=== PATIENT | female | born 1995 | race Native Hawaiian/Other Pacific Islander ===

== ENCOUNTER 2017-03-11 01:06 | Emergency (ER) | payer MEDICAID ==
[~2017-03-11 01:06] MED LIST: IBUP600 PO; MACR100C PO; ZOFR4TAB3 SL
--- NOTE | 2017-03-11 02:19 | PD ---
HPI Travel History International Travel<30 Days: No Contact w/Intl Traveler<30Days: No Known Affected Area: No History of Present Illness HPI This patient is a 22-year-old 4 para 3003 EDC is 04/01/2017 presently at 37 weeks gestation she presents with the onset of contractions at about 6:30 PM questionable leaking of fluid no vaginal bleeding. amnisure is negative care with [facility] and Dr. Colvin Denies any complications Unsure of her group B strep status History Past Medical History Narrative Medical No known drug allergies no major medical problems Obstetric History Obstetric History Normal spontaneous vaginal delivery 3 at term Past Surgical History Narrative Surgical Tonsils and adenoids as a child Family History Family History: Negative Social History Alcohol Use: No Tobacco Use: No Substance Abuse: No Allergies-Medications (Allergen,Severity, Reaction): Coded Allergies: No Known Allergies (Unverified , 05/04/15) Home Meds Active Scripts Ibuprofen (Motrin 600 Mg Tab) 600 Mg Tab, 600 MG PO Q6H Y for CRAMPING, #30 TAB 0 Refills Prov:Catalina Parra MD 01/08/16 Nitrofurantoin Monohyd Macro (Macrobid) 100 Mg Cap, 100 MG PO BID, #10 CAP Prov:Marcos Tejada MD 05/04/15 Ondansetron (Zofran ODT) 4 Mg Tab, 4 MG SL Q6H Y for NAUSEA, #6 TAB FOR NAUSEA/VOMITING Prov:Marcos Tejada MD 05/04/15 Review of Systems Gastrointestinal: Abdominal Pain (as per history of present illness) Physical Exam Narrative GENERAL: Well-nourished, well-developed patient. Alert oriented 3 and cooperative in no acute distress SKIN: Warm and dry. CARDIOVASCULAR: Regular rate and rhythm without murmurs, gallops, or rubs. RESPIRATORY: Breath sounds equal bilaterally. No accessory muscle use. ABDOMEN/GI: Gravid term estimated weight 7 pounds Gravid to [-] weeks size consistent with gestational age Fundal Height: [-] GENITOURINARY: External Genitalia: intact and normal in appearance BUS glands: [-] Cervix: [-] Slightly posterior soft Dilatation: [-] 1-2 cm Effacement: [-] 50% effaced Station: [-] -2 station Presentation: [-] Vertex Membranes: [intact Uterine Contractions: [-] Irregular contractions every 2-4 minutes FHT's: Category: [-] 1 Baseline: [-] 130 Reactive: [-] + Variability: [-] Moderate variability Decels: [-] 0 EXTREMITIES: No cyanosis or edema. 2+ NEUROLOGICAL: Awake and alert. Motor and sensory grossly within normal limits. Five out of 5 muscle strength in all muscle groups. Normal speech. Data Data Vital Signs Reviewed: Yes (blood pressure 123/77 pulse is 97 she is afebrile) [facility] Medical Record Reviewed: Yes Interpretation(s) 22-year-old at 37 weeks Harmon Gutierrez versus early latent phase GBS unknown Reactive category 1 tracing No clinical evidence of ruptured membranes as the amnisure is negative Plan Patient has been monitored over the past hour GBS culture Will discharge the patient home kick counts Structures on when to return Plan Discharge home kick counts Keep her next clinic appointment Instructions on when to return Diagnosis Diagnosis: Primary Impression: 37 weeks gestation of Additional Impression: Malick Gutierrez' contraction Disposition: 01 DISCHARGE HOME Condition: Stable Patient Instructions: General Instructions, Having Your Baby: The Labor Process (GEN), Movement (ED) Departure Forms: Tests/Procedures Eloina Anderson MD Mar 11, 2017 02:19
== END 2017-03-11 02:30 | disposition home or self-care (01) ==
LOC: HOBED 01:06
DX: O47.1 False labor at or after 37 completed weeks of gestation (principal); Z3A.37 37 weeks gestation of pregnancy
CPT/HCPCS: 59025; 84112; 87081; 87150; 99284

== ENCOUNTER 2017-03-18 22:58 | Inpatient (IN) | payer MEDICAID ==
[2017-03-18] MEDS ORDERED: LACTATED RINGER'S 1000 ML INJ 1,000 ML IV SCH (23:40)
[2017-03-18] MEDS ORDERED: LACTATED RINGER'S 1000 ML INJ 1,000 ML IV PRN (23:40)
--- NOTE | 2017-03-18 23:40 | HHI.HP ---
HPI Chief Complaint Contractions Date Seen: Mar 18, 2017 Travel History International Travel<30 Days: No Contact w/Intl Traveler<30Days: No Known Affected Area: No History of Present Illness HPI This 22-year-old white female at [address] Colvin for care but is presented here in active labor. heart tones are reactive she is brenda every 3 minutes Weeks Gestation: 38 Para: 3 : 5 History Obstetric History Obstetric History 3 vaginal deliveries Social History Alcohol Use: No Tobacco Use: No Substance Abuse: No Allergies-Medications (Allergen,Severity, Reaction): Coded Allergies: No Known Allergies (Unverified , 05/04/15) Home Meds Active Scripts Ibuprofen (Motrin 600 Mg Tab) 600 Mg Tab, 600 MG PO Q6H Y for CRAMPING, #30 TAB 0 Refills Prov:Catalina Parra MD 01/08/16 Nitrofurantoin Monohyd Macro (Macrobid) 100 Mg Cap, 100 MG PO BID, #10 CAP Prov:Marcos Tejada MD 05/04/15 Ondansetron (Zofran ODT) 4 Mg Tab, 4 MG SL Q6H Y for NAUSEA, #6 TAB FOR NAUSEA/VOMITING Prov:Marcos Tejada MD 05/04/15 Review of Systems General / Constitutional: No: Fever, Weight Gain, Chills, Other Eyes: No: Diploplia, Blurred Vision, Visual changes, Pain, Photophobia HENT: No: Headaches, Vertigo, Lightheadedness Cardiovascular: No: Irregular Rhythm, Chest Pain or Discomfort, Palpitations, Tachycardia, Syncope, Varicosities, Edema, Cyanosis Respiratory: No: Cough, Short of Breath, Other Gastrointestinal: Abdominal Pain, No: Nausea, Vomiting, Diarrhea Genitourinary: No: Decreased Urinary Output, Oliguria Musculoskeletal: No: Limited ROM, Weakness, Cramping, Edema, Pain Skin: No Rash, No Itching, No Dryness, No Lumps, No Change in Pigmentation, No Change in Nails, No Alopecia, No Lesions Neurologic: No: Weakness, Dizziness, Syncope, Focal Abnormalities, Coordination Problem, Headache, Slurred Speech, Seizures Psychiatric: No: Depression, Suicidal Ideations, Homicidal Ideation Endocrine: No: Heat Intolerance, Cold Intolerance, Polydipsia, Polyuria, Other Physical Exam Narrative GENERAL: Well-nourished, well-developed patient. SKIN: Warm and dry. HEAD: Normocephalic and atraumatic. EYES: No scleral icterus. No injection or drainage. ENT: No nasal drainage noted. Mucous membranes pink. Airway patent. NECK: Supple, trachea midline. No JVD. CARDIOVASCULAR: Regular rate and rhythm without murmurs, gallops, or rubs. RESPIRATORY: Breath sounds equal bilaterally. No accessory muscle use. BREASTS: Bilateral exam showed no masses , no retractions, no nipple discharge. ABDOMEN/GI: Abdomen soft, non-tender, bowel sounds present, no rebound, no guarding Gravid to [38-] weeks size Fundal Height: [38-] GENITOURINARY: External Genitalia: intact and normal in appearance BUS glands: [-] Cervix: [-] Dilatation: [5-] Effacement: [-90] Station: [-2] Presentation: [-vtx] Membranes: [intact bulging] Uterine Contractions: [reg-] FHT's: Category: [1-] Baseline: 133[-] Reactive: [yes-] Variability: [-mod] Decels: [none-] EXTREMITIES: No cyanosis or edema. BACK: Nontender without obvious deformity. No CVA tenderness. NEUROLOGICAL: Awake and alert. Motor and sensory grossly within normal limits. Five out of 5 muscle strength in all muscle groups. Normal speech. Caprini VTE Risk Assessment Caprini VTE Risk Assessment: No/Low Risk (score <= 1) Caprini Risk Assessment Model Point Value = 1 Point Value = 2 Point Value = 3 Point Value = 5 Age 41-60 Minor surgery BMI > 25 kg/m2 Swollen legs Varicose veins or History of unexplained or recurrent spontaneous Oral contraceptives or hormone replacement Sepsis (< 1 month) Serious lung disease, including pneumonia (< 1 month) Abnormal pulmonary function Acute myocardial infarction Congestive heart failure (< 1 month) History of inflammatory bowel disease Medical patient at bed rest Age 61-74 Arthroscopic surgery Major open surgery (> 45 min) Laparoscopic surgery (> 45 min) Malignancy Confined to bed (> 72 hours) Immobilizing plaster cast Central venous access Age >= 75 History of VTE Family history of VTE Factor V Leiden Prothrombin 42824C Lupus anticoagulant Anticardiolipin antibodies Elevated serum homocysteine Heparin-induced thrombocytopenia Other congenital or acquired thrombophilia Stroke (< 1 month) Elective arthroplasty Hip, pelvis, or leg fracture Acute spinal cord injury (< 1 month) Prophylaxis Regimen Total Risk Factor Score Risk Level Prophylaxis Regimen 0-1 Low Early ambulation 2 Moderate Order ONE of the following: *Sequential Compression Device (SCD) *Heparin 5000 units SQ BID 3-4 Higher Order ONE of the following medications: *Heparin 5000 units SQ TID *Enoxaparin/Lovenox 40 mg SQ daily (WT < 150 kg, CrCl > 30 mL/min) *Enoxaparin/Lovenox 30 mg SQ daily (WT < 150 kg, CrCl > 10-29 mL/min) *Enoxaparin/Lovenox 30 mg SQ BID (WT < 150 kg, CrCl > 30 mL/min) AND/OR *Sequential Compression Device (SCD) 5 or more Highest Order ONE of the following medications: *Heparin 5000 units SQ TID (Preferred with Epidurals) *Enoxaparin/Lovenox 40 mg SQ daily (WT < 150 kg, CrCl > 30 mL/min) *Enoxaparin/Lovenox 30 mg SQ daily (WT < 150 kg, CrCl > 10-29 mL/min) *Enoxaparin/Lovenox 30 mg SQ BID (WT < 150 kg, CrCl > 30 mL/min) AND *Sequential Compression Device (SCD) Assessment/Plan Assessment and Plan 22-year-old white female at 38 weeks presents in active labor cervix 5 cm 90% -2 vertex. Contractions are regular heart tones are reactive Impressions active labor 38 weeks Plan is admission for labor management anticipate vaginal delivery Miguel Pradhan II, MD Mar 18, 2017 23:40
[2017-03-18] MEDS ORDERED: CITRIC ACID-SODIUM CITRATE LIQ 30 ML UDC PO SCH (23:45)
[2017-03-18] MEDS ORDERED: OXYTOCIN 30 UNITS-500ML PREMIX 500 ML IV ONE (23:45)
[2017-03-18] MEDS ORDERED: MINERAL OIL 10 ML VIAL TOPICAL PRN (23:45)
[2017-03-18] MEDS ORDERED: LIDOCAINE HCL 1% 50 ML VIAL I-DERMAL PRN (23:45)
[2017-03-18] MEDS ORDERED: PENICILLIN G POTASSIUM INJ 5,000,000 UNITS in SODIUM CHLORIDE 0.9% INJ 100 ML IV ONE (23:45)
[2017-03-18] MEDS ORDERED: SODIUM CHLORID 0.9% 500 ML INJ 500 ML IV PRN (23:45)
[2017-03-18] MEDS ORDERED: LIDOCAINE HCL 1% 50 ML VIAL INFIL PRN (23:45)
[2017-03-18] MEDS ORDERED: fentaNYL 2MCG-BUPIV 0.125% INJ 100 ML ONE (23:53)
[2017-03-18] MEDS ORDERED: ePHEDrine/NS 25 MG/5 ML SYR ONE (23:53)
[2017-03-19] VITALS (25 sets, daily range): BP systolic 97–137; BP diastolic 55–105; PULSE 72–134; RESP 14–18; TEMP 97.4–98.2; O2SAT 91–100
[2017-03-19] MEDS ORDERED: SODIUM CHLOR 0.9% 1000 ML INJ 1,000 ML IV PRN
[2017-03-19 00:34] LABS: AUTOMATED NEUTROPHIL # 6.2 TH/MM3 (1.8-7.7); BASOPHIL # 0.1 TH/MM3 (0-0.2); BASOPHIL % 0.9 % (0.0-2.0); EOSINOPHIL # 0.1 TH/MM3 (0-0.4); EOSINOPHIL % 0.7 % (0.0-4.0); HEMO FLAGS DIFF FINAL; LYMPH % 19.2 % (9.0-44.0); LYMPHOCYTE # 1.7 TH/MM3 (1.0-4.8); MEAN CELL VOLUME 81.3 FL (80.0-100.0); MEAN CORPUSCULAR HEMOGLOBIN 26.5 PG (27.0-34.0); MEAN CORPUSCULAR HGB CONC 32.6 % (32.0-36.0); MONO % 9.8 % (0.0-8.0); NEUT % 69.4 % (16.0-70.0); PLATELET COUNT 384 TH/MM3 (150-450); RED BLOOD COUNT 4.06 MIL/MM3 (4.00-5.30); RED CELL DISTRIBUTION WIDTH 15.5 % (11.6-17.2); WHITE BLOOD COUNT 8.9 TH/MM3 (4.0-11.0)
[2017-03-19 00:44] LABS: BACTERIA, URINE RARE /hpf; BLOOD, URINE NEG (NEG); COMMENT (UR) CULT NOT INDICATED; CULTURE IF INDICATED CULT NOT INDICATED; GLUCOSE,URINE NEG (NEG); KETONE, URINE NEG (NEG); MUCUS URINE FEW /lpf (OCC); NITRITE,URINE NEG (NEG); PH, URINE 6.5 (5.0-8.5); SQUAMOUS EPITHELIAL CELL URINE 4 /hpf (0-5); URINE COLOR YELLOW (YELLW/STRAW)
--- NOTE | 2017-03-19 00:49 | PD.OB.DELI ---
Weeks gestation: 38 Gest age assessed date: Mar 19, 2017 Gest age assessed time: 00:38 Pt started active labor?: Yes Medical induction of labor?: No Artificial rupture of membrane: No Anesthesia: None Episiotomy: None Vaginal Delivery: Normal Presentation: Occiput anterior Nuchal Cord: None Delayed cord clamping (45 sec): No Infant: Male Delivery date: Mar 19, 2017 Delivery time: 00:38 One Minute : 8 Five Minute : 9 Weight: 3410 gm Placenta: Spontaneous delivery Laceration: No lacerations Estimated blood loss: 100 Additional Information precipitous labor & delivery Miguel Pradhan II, MD Mar 19, 2017 00:49
[2017-03-19] MEDS ORDERED: OXYTOCIN 30 UNITS-500ML PREMIX 500 ML IV SCH (01:00)
[2017-03-19] MEDS ORDERED: WITCH HAZEL 50%/GLYCERIN 12.5% 40 PAD JAR TOPICAL PRN (01:00)
[2017-03-19] MEDS ORDERED: DOCUSATE SODIUM 50 MG/SENNA 8.6 MG TAB PO PRN (01:00)
[2017-03-19] MEDS ORDERED: ACETAMINOPHEN 325 MG TAB PO PRN (01:00)
[2017-03-19] MEDS ORDERED: ONDANSETRON ODT 4 MG TAB PO PRN (01:00)
[2017-03-19] MEDS ORDERED: SODIUM CHLORIDE 0.9% FLUSH 10 ML FLUSH IV FLUSH PRN (01:00)
[2017-03-19] MEDS ORDERED: ALUMINUM/MAGNESIUM/SIMETH 30 ML CUP PO PRN (01:00)
[2017-03-19] MEDS ORDERED: ZOLPIDEM TARTRATE 5 MG TAB PO PRN (01:00)
[2017-03-19] MEDS ORDERED: BENZOCAINE 20% TOPICAL SPRAY 60 ML CAN TOPICAL PRN (01:00)
[2017-03-19] MEDS ORDERED: PENICILLIN G POTASSIUM INJ 2,500,000 UNITS in SODIUM CHLORIDE 0.9% INJ 100 ML IV SCH (03:45)
[2017-03-19] MEDS: IBUPROFEN 600 MG TAB PO PRN ×2 (07:27→13:28)
--- NOTE | 2017-03-19 08:20 | HHI.OB ---
Subjective Post Day: 0 Remarks day # 0 AFVSS overnight. Decreased lochia. Denies dysuria. No breast tenderness. She is feeding the baby via bottle. Appetite good. No nausea or vomiting. Ambulating well. Denies calf pain or shortness of breath. Otherwise, she is doing well this morning and has no other complaints. Objective Vitals/I&O Vital Signs Date Time Temp Pulse Resp B/P (MAP) Pulse Ox O2 Delivery O2 Flow Rate FiO2 03/19/17 07:30 72 118/68 (85) 03/19/17 07:30 97.4 14 03/19/17 04:23 98.2 85 16 103/55 (71) 03/19/17 02:27 18 03/19/17 02:15 82 122/62 (82) 03/19/17 02:00 76 123/89 (100) 03/19/17 01:51 18 03/19/17 01:45 82 116/72 (87) 03/19/17 01:31 82 114/57 (76) 03/19/17 01:25 18 03/19/17 01:15 98 137/84 (101) 03/19/17 01:13 18 03/19/17 01:00 90 125/76 (92) 03/19/17 00:52 101 127/67 (87) 03/19/17 00:45 18 03/19/17 00:40 94 03/19/17 00:40 99 03/19/17 00:38 129 132/105 (114) 03/19/17 00:35 102 03/19/17 00:35 102 03/19/17 00:35 100 03/19/17 00:30 93 03/19/17 00:30 100 03/19/17 00:30 105 03/19/17 00:25 91 03/19/17 00:25 94 03/19/17 00:25 97 03/19/17 00:20 118 03/19/17 00:20 118 03/19/17 00:15 75 03/19/17 00:10 134 03/19/17 00:08 96 127/61 (83) Objective Remarks GENERAL: Well-nourished, well-developed patient. CARDIOVASCULAR: Regular rate and rhythm without murmurs, gallops, or rubs. RESPIRATORY: Breath sounds equal bilaterally. No accessory muscle use. ABDOMEN/GI: Abdomen soft, non-tender. Fundus: Firm, non-tender at umbilicus. GENITOURINARY: Light to moderate bleeding. EXTREMITIES: No cyanosis or edema, non-tender, without signs of DVT. Medications and IVs Current Medications Medications (Trade) Dose Ordered Sig/Sandeep Route Start Time Stop Time Status Last Admin (NS Flush) 2 ml BID IV FLUSH 03/19/17 09:00 (NS Flush) 2 ml UNSCH PRN IV FLUSH 03/19/17 01:00 (Tylenol) 650 mg Q4H PRN PO 03/19/17 01:00 (Motrin) 600 mg Q6H PRN PO 03/19/17 01:00 03/19/17 07:27 (Percocet 5-325 Mg) 1 tab Q4H PRN PO 03/19/17 01:00 (Americaine 20% Top Spr) 1 spray Q4H PRN TOPICAL 03/19/17 01:00 03/19/17 07:27 (Tucks Pads) 1 applic QID PRN TOPICAL 03/19/17 01:00 03/19/17 07:27 (Vanessa-Colace) 2 tab Q12H PRN PO 03/19/17 01:00 (Ambien) 5 mg HS PRN PO 03/19/17 01:00 (M-M-R Ii Inj) 0.5 ml ONCE ONCE SQ 03/19/17 16:00 03/19/17 16:01 (Boostrix Inj) 0.5 ml ONCE ONCE IM 03/19/17 16:00 03/19/17 16:01 (Mag-Al Plus Susp Liq) 15 ml Q8H PRN PO 03/19/17 01:00 (Zofran Odt) 4 mg Q6H PRN PO 03/19/17 01:00 Assessment/Plan Assessment and Plan 22 y/o female who is PPD# 0 s/p . -Continue routine care. -Motrin PRN pain. -Encouraged OOB. Advised pelvic rest for 6 wks. -Re: ctrl, she would like to have a Mirena by her outpatient OB -D/c in 1-2 more days. clinton Pradhan, Soham Hall MD R1 Mar 19, 2017 08:20
[2017-03-19] MEDS ORDERED: SODIUM CHLORIDE 0.9% FLUSH 10 ML FLUSH IV FLUSH SCH (09:00)
[2017-03-19] MEDS ORDERED: DIPHTH/TETANUS/ACEL PERTUSSIS (BOOSTER) 0.5 ML VIAL/PFS IM ONE (16:00)
[2017-03-19] MEDS ORDERED: MEASLES, MUMPS, RUBELLA VACCINE 0.5 ML VIAL SQ ONE (16:00)
[2017-03-19] MEDS: oxyCODONE/ACETAMINOPHEN 5 MG/325 MG TAB PO PRN (20:04)
--- NOTE | 2017-03-20 06:38 | HHI.OB ---
Subjective Remarks PPD day # 1. No acute issues overnight, vitals are stable, patient remains afebrile. Decreasing lochia and pain. Patient is ambulating without difficulty and voiding independently. She is feeding the baby via formula. She denies any nausea or vomiting and has a good appetite. Positive flatus/bowel movement. She denies any calf pain, chest pain, or shortness of breath. She is bonding well with infant. Objective Vitals/I&O Vital Signs Date Time Temp Pulse Resp B/P (MAP) Pulse Ox O2 Delivery O2 Flow Rate FiO2 03/19/17 20:05 97.8 88 16 03/19/17 20:05 111/72 (85) 03/19/17 19:30 97.9 73 16 97/62 (74) 03/19/17 07:30 72 118/68 (85) 03/19/17 07:30 97.4 14 Objective Remarks GENERAL: Well-nourished, well-developed patient. CARDIOVASCULAR: Regular rate and rhythm without murmurs, gallops, or rubs. RESPIRATORY: Breath sounds equal bilaterally. No accessory muscle use. ABDOMEN/GI: Abdomen soft, non-tender. Fundus: Firm, non-tender at umbilicus. GENITOURINARY: Light to moderate bleeding. EXTREMITIES: No cyanosis or edema, non-tender, without signs of DVT. Medications and IVs Current Medications Medications (Trade) Dose Ordered Sig/Sandeep Route Start Time Stop Time Status Last Admin (NS Flush) 2 ml BID IV FLUSH 03/19/17 09:00 (NS Flush) 2 ml UNSCH PRN IV FLUSH 03/19/17 01:00 (Tylenol) 650 mg Q4H PRN PO 03/19/17 01:00 03/19/17 12:33 (Motrin) 600 mg Q6H PRN PO 03/19/17 01:00 03/19/17 13:28 (Percocet 5-325 Mg) 1 tab Q4H PRN PO 03/19/17 01:00 03/19/17 20:04 (Americaine 20% Top Spr) 1 spray Q4H PRN TOPICAL 03/19/17 01:00 03/19/17 07:27 (Tucks Pads) 1 applic QID PRN TOPICAL 03/19/17 01:00 03/19/17 07:27 (Vanessa-Colace) 2 tab Q12H PRN PO 03/19/17 01:00 (Ambien) 5 mg HS PRN PO 03/19/17 01:00 (Mag-Al Plus Susp Liq) 15 ml Q8H PRN PO 03/19/17 01:00 (Zofran Odt) 4 mg Q6H PRN PO 03/19/17 01:00 Assessment/Plan Assessment and Plan 22 y/o female who is PPD# 1 s/p . -Continue routine care. -Motrin PRN pain. -Encouraged OOB. Advised pelvic rest for 6 wks. -Re: ctrl, she would like to have a Mirena by her outpatient OB -D/c tomorrow. Brittni Mcdaniels Dr., MD, R3 Mar 20, 2017 06:38
[2017-03-20 08:10] VITALS: BP 108/70; PULSE 84; RESP 16; TEMP 98
[2017-03-20] MEDS ORDERED: IBUP-232 PO (10:36)
[2017-03-20] MEDS ORDERED: PERI8.6T PO (10:36)
--- NOTE | 2017-03-20 10:36 | HHI.DCPOC ---
Discharge Care Plan Diagnosis: (1) Vaginal delivery Report Symptoms to Your Doctor -Temperature above 100.5 degrees -Redness, of incision or excessive or foul smelling drainage -Unusual pain or calf pain -Increased vaginal bleeding -Painful or difficulty urinating -Feelings of extreme sadness or anxiety after 2 weeks Goals to Promote Your Health * To prevent worsening of your condition and complications * To maintain your health at the optimal level Directions to Meet Your Goals Take your medications as prescribed Follow your dietary instruction Follow activity as directed Ensure plenty of rest for recovery Drink fluids for hydration Keep your appointments as scheduled Take your immunizations and boosters as scheduled If your symptoms worsen call your PCP, if no PCP go to Urgent Care Center or Emergency Room Smoking is Dangerous to Your Health. Avoid second hand smoke Call the 24-hour crisis hotline for domestic abuse at Brittni Posadas MD, R3 Mar 20, 2017 10:36
[2017-03-20] MEDS: oxyCODONE/ACETAMINOPHEN 5 MG/325 MG TAB PO PRN (11:00)
== END 2017-03-20 14:05 | disposition home or self-care (01) | DRG 775 ==
LOC: HOBED 22:58 → H2EB 23:40 → H1EA 03-19 02:35
PROVIDERS: ADMIT Obstetrics & Gynecology Maternal & Fetal Medicine; ATTEND Obstetrics & Gynecology Maternal & Fetal Medicine
PROC: 10E0XZZ Delivery of Products of Conception, External Approach (ICD-10-PCS; principal; 2017-03-19)
DX: O62.3 Precipitate labor (principal); Z37.0 Single live birth; Z3A.38 38 weeks gestation of pregnancy
CPT/HCPCS: 59025; 80307; 81001; 85025

== ENCOUNTER → 2017-11-25 | Outpatient (CLI) | payer MEDICAID | LOC: HPND 13:05 | DX: O35.8XX0 Maternal care for other (suspected) fetal abnormality and damage, not applicable or unspecified (principal) | CPT/HCPCS: 76811 ==

== ENCOUNTER 2018-03-30 02:02 | Inpatient (IN) ==
[2018-03-30] MEDS ORDERED: fentaNYL Citrate Inj 100 MCG/2 ML Ampul IV.PUSH PRN ×2 (02:56)
[2018-03-30] MEDS ORDERED: Oxytocin 30 Units/500ml Premix 30 UNITS/500 ML BAG IV.SIG ONE (02:56)
[2018-03-30] MEDS ORDERED: Naloxone Inj 0.4 MG/ML Vial IV.PUSH PRN ×2 (02:56→10:40)
[2018-03-30] MEDS ORDERED: Sodium Chlor 0.9% Inj 500 ML IV.SIG PRN (02:56)
[2018-03-30] MEDS ORDERED: Sod Chloride 0.9% Inj 1,000 ML IV.CONT PRN (02:56)
[2018-03-30] MEDS ORDERED: Citric Acid/Sodium Citrate Liq 30 ML UDC PO SCH (03:00)
--- NOTE | 2018-03-30 03:06 | ED ---
History of Present Illness Primary Care Physician: UNKNOWN History of Present Illness: GENERAL: Well-nourished, well-developed patient. SKIN: Warm and dry. HEAD: Normocephalic and atraumatic. EYES: No scleral icterus. No injection or drainage. ENT: No nasal drainage noted. Mucous membranes pink. Airway patent. NECK: Supple, trachea midline. No JVD. CARDIOVASCULAR: Regular rate and rhythm without murmurs, gallops, or rubs. RESPIRATORY: Breath sounds equal bilaterally. No accessory muscle use. ABDOMEN/GI: Abdomen soft, non-tender, bowel sounds present, no rebound, no guarding Gravid to [-] weeks size Fundal Height: [-] GENITOURINARY: External Genitalia: intact and normal in appearance BUS glands: [-neg] Cervix: [-] Dilatation: [-3] Effacement: [50-] Station: [-3-] Presentation: [-vtx] Membranes: [intact] Uterine Contractions: [q2-3-] FHT's: Category: [-2] Baseline: [-120] Reactive: [y-] Variability: [-mod] Decels: [sharee-] EXTREMITIES: No cyanosis or edema. BACK: Nontender without obvious deformity. No CVA tenderness. NEUROLOGICAL: Awake and alert. Motor and sensory grossly within normal limits. Five out of 5 muscle strength in all muscle groups. Normal speech. Review of Systems All other systems reviewed negative except as stated in HPI PMFSH - Medical / Surgical Hx Neg / Unobtainable Medical Problems Denied: Yes - Medical History Medical History: Medical History (Last Updated 03/30/18 @ 03:01 by Alfonso Alonzo MD) Hypertrophy of adenoids - Tobacco History Tobacco Use In Past 30 Days: No - Alcohol History How Often Do You Have a Drink Containing Alcohol: Monthly or less - Substance Use History Substance History: No History of Abuse - Travel History History of Recent Travel: No Recent Travel in the [place] Within the Last 8 Weeks: No Recent Travel Out of the Country Within the Last 8 Weeks: No Medications and Allergies Active Medications: Active Medications Citric Acid/Sodium Citrate (Sodium Citrate/Citric Acid Liq) 30 ml PO CHAIN PERSON GYPSY Stop: 04/03/18 02:59 Fentanyl Citrate (Fentanyl Inj) 50 mcg IV.PUSH Q1H PRN PRN Reason: Pain Scale 3 - 5 Fentanyl Citrate (Fentanyl Inj) 100 mcg IV.PUSH Q1H PRN PRN Reason: PAIN SCALE 6 TO 10 Lactated Ringer's (Lr 1000 Ml Inj) 1,000 mls @ 125 mls/hr IV.CONT .Q8H GYPSY Lactated Ringer's (Lr 1000 Ml Inj) 1,000 mls @ 3,000 mls/hr IV.SIG UNSCH PRN PRN Reason: compromise or epidural Lidocaine HCl (Xylocaine 1% Inj) 10 ml INFILTRATN PRN PRN PRN Reason: For episiotomy repair Stop: 04/01/18 02:55 Allergies Allergy/AdvReac Type Severity Reaction Status Date / Time No Known Allergies Allergy NONE Uncoded 03/30/18 02:32 Home Medications Medication Instructions Recorded Confirmed Type prenat.vits,shahrzad,[id number] 1 tab PO DAILY 03/30/18 03/30/18 History [ Vitamin] Exam Vital signs: Vital Signs 03/30/18 02:24 Temperature 97.9 F Pulse Rate 86 Respiratory Rate 18 Blood Pressure 125/68 Intake & Output 03/29/18 03/29/18 03/30/18 06:59 18:59 06:59 Weight 81.647 kg Narrative: 23-year-old 5 para 4 who reports contractions over the last 3-4 hours of increasing intensity. She denies leakage of fluid or bleeding. Obstetrical history: She has had 4 prior vaginal deliveries which were reportedly uncomplicated. This was under the care of Dr. Ovalle but she states she has not been to visit for the last month due to moving house. She is GBS unknown. No reported complications with this . Assessment and Plan - Plan Assessment: 23-year-old grand multipara in early labor, #2 unknown GBS status Plan: Admit for labor management. Rapid GBS was obtained. Discharge Plan - Discharge Disposition Patient Disposition: 30 Still Patient - Discharge Condition Condition: Good - Physicians Team ED Provider: Alfonso Alonzo Primary Care Provider: UNKNOWN, - Rxs /Orders / Referrals /Forms Prescriptions: No Action prenat.vits,shahrzad,[id number] [ Vitamin] Tablet 1 tab PO DAILY - Discharge Instructions Print Language: [place] Irish
[2018-03-30 03:14] LABS: Baso # (Auto) 0.1 th/mm3 (0.0-0.2); Eos % (Auto) 0.4 % (0.0-4.0); Hematocrit 33.6 % (35.0-46.0); Hemoglobin 11.1 gm/dL (11.6-15.3); Lymph # (Auto) 1.7 th/mm3 (1.0-4.8); Lymph % (Auto) 20.7 % (9.0-44.0); Mean Corpuscular HGB Conc 33.1 % (32.0-36.0); Mean Corpuscular Hemoglobin 27.7 pg (27.0-34.0); Mean Corpuscular Volume 83.8 fL (80.0-100.0); Mean Platelet Volume 7.9 fL (7.0-11.0); Mono # (Auto) 0.7 th/mm3 (0.0-0.9); Mono % (Auto) 8.4 % (0.0-8.0); Neut # (Auto) 5.6 th/mm3 (1.8-7.7); Neut % (Auto) 69.5 % (16.0-70.0); Platelet Count 348 th/mm3 (150-450); Red Blood Count 4.01 mil/mm3 (4.00-5.30); Red Cell Distribution Width 14.9 % (11.6-17.2)
[2018-03-30] MEDS ORDERED: fentaNYL 2MCG-Bupiv 0.125% Epi 150 ML EPIDURAL ONE (03:34)
[2018-03-30] MEDS ORDERED: Lidocaaine 1.5%/Epinephrine 1:200,000 PF Inj 5 ML Amp ONE (03:43)
[2018-03-30] MEDS ORDERED: Bupivacaine PF 0.25% Inj 10 ML Vial ONE (03:43)
[2018-03-30] MEDS ORDERED: Lidocaine PF 1% Inj 5 ML Vial ONE (03:44)
[2018-03-30] MEDS ORDERED: fentaNYL Citrate Inj 100 MCG/2 ML Ampul EPIDURAL ONE (04:21)
[2018-03-30] MEDS ORDERED: fentaNYL 2MCG-Bupiv 0.125% Epi 150 ML EPIDURAL PRN (04:21)
[2018-03-30 05:54] LABS: Amorphous Sediment,Urine Rare /hpf; Bacteria,Urine Occasional /hpf; Bilirubin,Urine Negative (Negative); Clarity,Urine Hazy (Clear); Color,Urine Yellow (Yellw/Straw); Glucose,Urine (UA) Negative (Negative); Leukocyte Esterase,Urine Large (Negative); Mucus,Urine Few /lpf (Occasional); Nitrite,Urine Positive (Negative); Specific Gravity,Urine 1.013 (1.002-1.035); Squamous Epithelial Cell,Urine <1 /hpf (0-5); Transitional Epi Cells,Urine 1 /hpf
[2018-03-30 05:58] LABS: Amphetamine Urine With Conf Neg (Neg); Benzodiazepine Urine With Conf Neg (Neg)
[2018-03-30] MEDS ORDERED: Oxytocin 30 Units/500ml Premix 30 UNITS/500 ML BAG IV.SIG PRN (08:36)
--- NOTE | 2018-03-30 08:39 | P.OBGPN ---
S: Doing well, pain controlled with epidural O: VS: Exam: 6-7 cm / 70% effaced/-1 station. AROM this check with clear fluid FHTs: 120s, moderate variability, accelerations present no decelerations TOCO: Contractions every 3-5 minutes A/P 23-year-old at 39 weeks and 0 days admitted for labor 1. IUP: Category 1 tracing -GBS rapid screen negative, estimated weight 7.5 pounds, cephalic by exam , male fetus 2. Labor: Status post AROM this check (0745), clear fluid, continue expectant management, will start Pitocin if unchanged at next check. Anticipate vaginal delivery. 3. Reflex urine culture: Will follow up
[2018-03-30] MEDS ORDERED: Acetaminophen 325 MG Tablet PO PRN (10:40)
[2018-03-30] MEDS ORDERED: Witch Hazel 50%/Glyderin 12.5% 40 Pad Jar RECTAL PRN (10:40)
[2018-03-30] MEDS ORDERED: Benzocaine 20% Top Spray 60 ML Can TOPICAL PRN (10:40)
[2018-03-30] MEDS ORDERED: Zolpidem Tartrate 5 MG Tablet PO PRN (10:40)
[2018-03-30] MEDS ORDERED: Bisacodyl 10 MG Supp RECTAL PRN (10:40)
[2018-03-30] MEDS ORDERED: Oxytocin 30 Units/500ml Premix 30 UNITS/500 ML BAG IV.CONT PRN (10:40)
--- NOTE | 2018-03-30 10:44 | P.OP ---
Date of procedure: 03/30/18 Surgeon: Jordan Ulrich MD Operation and Findings: Preoperative diagnosis: 1. Intrauterine at 39 weeks and 0 days Postop diagnosis 1. Same as above status post vaginal delivery Procedure 1. Spontaneous vaginal delivery Surgeon Dr. Jordan Ulrich [employer]: [facility] labor and delivery nursing staff Findings: 1. Viable male at 10:33 AM, Apgars 9 and 9. [place] weight 3310 g. 2. Intact placenta with three-vessel cord at 10:35 AM 3. Intact perineum vagina and cervix Anesthesia: Epidural Specimen: Placenta to disposal Estimated blood loss: 200 cc Fluid replacement: Lactated Ringer's and Pitocin Urine output: Clear but none recorded DVT prophylaxis: None Antibiotics: None required Counts: correct x2 Time out done: yes Disposition: Stable to Indications: 23-year-old G5 now P5005 who presented in labor at 39 weeks, she received an epidural, her water was artificially ruptured and she progressed without any further augmentation to complete with reassuring heart tones, I was called to the room when the patient began to feel pressure. Description of procedure: The patient began pushing after the bed was broken down, the head upon was allowed to restitute naturally for delivery with a supported perineum, with gentle downward guidance the anterior shoulder was delivered followed by gentle upper guidance for the posterior shoulder, the torso and lower extremities were delivered with ease and with continued perineal support. The infant had spontaneous cry and was placed on mom's abdomen for skin to skin contact, we allowed delayed cord clamping. After the cord was clamped and cut, cord blood was obtained. Pitocin was bolused and with fundal massage the placenta was delivered, there is minimal uterine bleeding and uterus was firm. The perineum, vagina and cervix were inspected and found intact. The patient tolerated the procedure well and was left in the birthing suite with her .
[2018-03-30] MEDS ORDERED: Rho Immune Globulin Inj 1,500 UNIT/1.3 ML Vial IM ONE (16:00)
[2018-03-30] MEDS ORDERED: Measles/Mumps/Rubella Vaccine Inj 0.5 ML Vial SQ ONE (16:00)
[2018-03-30] MEDS ORDERED: Varicella Vaccine Live 1350 UNITS/0.5 ML Vial SQ ONE (16:00)
[2018-03-30] MEDS ORDERED: Diphtheria/Tetanus/Pertussis Vaccine Inj 0.5 ML Syringe IM ONE (16:00)
[2018-03-30] MEDS: Prenatal Vit/Ca/Iron/Folic Acid Tablet PO SCH (19:21)
[2018-03-30] MEDS: Senna/Docusate Sodium 8.6/50 MG Tablet PO SCH (21:13)
[2018-03-31] MEDS: Senna/Docusate Sodium 8.6/50 MG Tablet PO SCH ×2 (08:52→21:05)
[2018-03-31] MEDS: Prenatal Vit/Ca/Iron/Folic Acid Tablet PO SCH (08:52)
--- NOTE | 2018-03-31 12:37 | P.PNOB ---
Subjective Post day: 1 Objective Vital Signs/I&O: Vital Signs 03/30/18 16:01 03/30/18 20:30 03/31/18 08:30 Temperature 97.8 F 97.9 F 97.6 F Pulse Rate 82 80 84 Respiratory Rate 16 18 18 Blood Pressure 113/57 L 102/57 L 116/64 Result Diagrams: 03/30/18 03:00 Objective Remarks: GENERAL: Well-nourished, well-developed patient. CARDIOVASCULAR: Regular rate and rhythm without murmurs, gallops, or rubs. RESPIRATORY: Breath sounds equal bilaterally. No accessory muscle use. ABDOMEN/GI: Abdomen soft, non-tender. Fundus: Firm, non-tender at umbilicus. GENITOURINARY: Light to moderate bleeding. EXTREMITIES: No cyanosis or edema, non-tender, without signs of DVT. Medications and IVs: Active Medications Acetaminophen (Tylenol) 650 mg PO Q4H PRN PRN Reason: PAIN SCALE 1 TO 2 Al Hydroxide/Mg Hydroxide (Milk Of Magnesia Liq) 30 ml PO Q12H PRN PRN Reason: Mild Constipation Benzocaine (Americaine 20% [place]) 1 spray TOPICAL Q4H PRN PRN Reason: For Perineum Discomfort Bisacodyl (Dulcolax Supp) 10 mg RECTAL DAILY PRN PRN Reason: SEVERE CONSITIPATION Fentanyl/Bupivacaine/Sodium Chlor (Fentanyl 2 Mcg-Bupiv 0.125% Epi) 150 mls @ 10 mls/hr EPIDURAL PRN PRN PRN Reason: for Labor Pain Oxytocin (Pitocin 30 Units/Ns 500 Ml Premix) 30 units in 500 mls @ 100 mls/hr IV.CONT UNSCH PRN PRN Reason: Heavy bleeding Ibuprofen (Motrin) 800 mg PO Q8H PRN PRN Reason: For Cramping Last Admin: 03/31/18 10:08 Dose: 800 mg Lactulose (Lactulose Liq) 30 ml PO DAILY PRN PRN Reason: SEVERE CONSITIPATION Naloxone HCl (Narcan Inj) 0.1 mg IV.PUSH Q2M PRN PRN Reason: for opiate reversal Ondansetron HCl (Zofran Odt) 4 mg PO Q6H PRN PRN Reason: NAUSEA OR VOMITING Oxycodone/Acetaminophen (Percocet 5/325 Mg) 1 tab PO Q4H PRN PRN Reason: PAIN SCALE 3 TO 5 Oxycodone/Acetaminophen (Percocet 5/325 Mg) 2 tab PO Q4H PRN PRN Reason: PAIN SCALE 6 TO 10 Last Admin: 03/31/18 08:51 Dose: 2 tab Vit/Calcium/Iron/Folic Ac (Stuartnatal Plus 3) 1 tab PO DAILY [facility] Last Admin: 03/31/18 08:52 Dose: 1 tab Senna/Docusate Sodium (Vanessa-Colace) 1 tab PO BID [facility] Last Admin: 03/31/18 08:52 Dose: 1 tab Sennosides (Senokot) 17.2 mg PO Q12H PRN PRN Reason: Moderate Constipation Sodium Chloride (Ns Flush) 2 ml IV.FLUSH BID [facility] Last Admin: 03/31/18 05:01 Dose: Not Given Sodium Chloride (Ns Flush) 2 ml IV.FLUSH PRN PRN PRN Reason: FLUSH AFTER USING IV ACCESS Witch Sita/Glycerin (Tucks Pads) 1 applicatio RECTAL QID PRN PRN Reason: HEMORRHOIDS Zolpidem Tartrate (Ambien) 5 mg PO HS PRN PRN Reason: SLEEP Assessment and Plan - Plan pt doing well pain well managed with oral pain medication bonding with infant routine care pt was last seen in the office at 32 weeks gestation Discharge Planning: dc home tomorrow
--- NOTE | 2018-03-31 20:30 | CT ---
EXAM DATE: 03/31/2018 8:08 PM EDT AGE/SEX: 23 years / Female INDICATIONS: Right flank pain for two days. CLINICAL DATA: This is the patient's initial encounter. Patient reports that signs and symptoms have been present for 2 days and indicates a pain score of 7/10. MEDICAL/SURGICAL HISTORY: None. None. RADIATION DOSE: 8.72 CTDI (mGy) COMPARISON: No prior exams available for comparison. TECHNIQUE: Multiple contiguous axial images were obtained through the abdomen. Images were obtained using multiple row detector helical technique. Using automated exposure control and adjustment of the mA and/or kV according to patient size, radiation dose was kept as low as reasonably achievable to o btain optimal diagnostic quality images. DICOM format image data is available electronically for rev iew and comparison. FINDINGS: Lower Lungs: The visualized lower lungs are clear. Liver: The liver has a homogeneous density without space-occupying lesion. There is no dilation of th e biliary tree. Spleen: Homogeneous density without enlargement. Pancreas: Unremarkable without mass or calcification. Kidneys: The left kidney is unremarkable in appearance. The right kidney demonstrates no normal jesus r region and there is apparent hydronephrosis and dilatation of the right ureter. This is poorly def ined by the lack of intravenous and oral contrast. There are no renal calculi. Adrenal Glands: Unremarkable. Aorta: The aorta and proximal iliac vessels are grossly unremarkable without aneurysmal dilation. Bowel/Mesentery: The bowel loops are grossly unremarkable. The cecum and sigmoid colon have a normal configuration. Abdominal Wall: Intact. Retroperitoneum: No evidence of adenopathy in the retrocrural, para-aortic, or deep pelvic regions. Bladder: Contours are smooth. Reproductive Organs: The uterus appears markedly enlarged measuring up to approximately 20 cm in tra nsverse diameter by 9 cm in AP diameter and 17 cm in greatest caudocranial dimension. This extends in to the lower abdomen is mass effect on the upper bladder. There is a central low-attenuation area whi ch may represent a portion of the endometrium.. Inguinal: The inguinal region is unremarkable without evidence of adenopathy. Bony Structures: Unremarkable. CONCLUSION: 1. The uterus is markedly enlarged and extends into the lower abdomen. 2. Apparent right hydronephrosis and dilatation of the right ureter with no renal calculi. Electronically signed by: Soham Schmidt MD 03/31/2018 8:29 PM EDT
[2018-04-01 05:32] LABS: Albumin 2.3 g/dL (3.4-5.0); Anion Gap 12 meq/L (5-15); Aspartate Aminotransferase 17 U/L (15-37); Blood Urea Nitrogen 9 mg/dL (7-18); Calcium 8.3 mg/dL (8.5-10.1); Carbon Dioxide 21.3 meq/L (21.0-32.0); Chloride 105 meq/L (98-107); Glomerular Filtration Rate Greater Than 89 mL/min (>89); Glucose,Random 79 mg/dL (74-106); Potassium 4.1 meq/L (3.5-5.1); Sodium 138 meq/L (136-145)
[2018-04-01 05:33] LABS: Alanine Aminotransferase 22 U/L (10-53)
[2018-04-01 05:35] LABS: Alkaline Phosphatase 270 U/L (45-117); Total Protein 6.5 g/dL (6.4-8.2)
[2018-04-01 08:09] VITALS: BP 126/78
[2018-04-01 08:10] VITALS: PULSE 104; RESP 19; TEMP 99.7
[2018-04-01] MEDS: Senna/Docusate Sodium 8.6/50 MG Tablet PO SCH (08:40)
[2018-04-01] MEDS: Prenatal Vit/Ca/Iron/Folic Acid Tablet PO SCH (08:40)
--- NOTE | 2018-04-01 11:42 | P.PNOB ---
Subjective Post day: 2 Objective Vital Signs/I&O: Vital Signs 03/31/18 20:00 04/01/18 07:30 Temperature 98.2 F 99.7 F H Pulse Rate 86 104 H Respiratory Rate 18 19 Blood Pressure 121/66 126/78 Result Diagrams: 03/30/18 03:00 04/01/18 04:58 Objective Remarks: GENERAL: Well-nourished, well-developed patient. CARDIOVASCULAR: Regular rate and rhythm without murmurs, gallops, or rubs. RESPIRATORY: Breath sounds equal bilaterally. No accessory muscle use. ABDOMEN/GI: Abdomen soft, non-tender. Fundus: Firm, non-tender at umbilicus. GENITOURINARY: Light to moderate bleeding. EXTREMITIES: No cyanosis or edema, non-tender, without signs of DVT. Assessment and Plan - Plan pt doing well pain well managed with oral pain medication pt c/o yesterday of right flank pain "like a pulled muscle" x 2 days, slight cva tenderness, ct done show right hydronephrosis no stone ( Percocet rx given/ e force checked by Dr Weber) pt states pain has improved today Urine + for gram negative rods pt treated with Bactrim and given an rx with instrucstion if she has a fever or symptoms worsen to go to er, we will monitor for final culture report routine care pt states she will f/u with us Discharge Planning: dc home today
--- NOTE | 2018-04-01 11:49 | P.DS ---
Date of admission: 03/30/18 03:12 Primary care physician: UNKNOWN Attending physician on discharge: Dagoberto Hayden Anticipated date of discharge: 04/01/18 Brief History from admission: 39 weeks admitted for labor DS: Diagnosis - Discharge Diagnosis (1) (normal spontaneous vaginal delivery) Status: Acute DS: Medications - Discharge Medications Prescriptions: ibuprofen 800 mg PO Q8H PRN #30 tab PRN Reason: For Cramping oxycodone-acetaminophen 1 tab PO Q4H PRN 3 Days #10 tab PRN Reason: Pain Scale 3 To 5 sulfamethoxazole-trimethoprim 1 tab PO Q12H #12 tab DS: Summary Hospital Course: labor evaluation for kidney stones (negative) routine care - Time Spent with Patient Total time spent providing and/or coordinating discharge services: Less than 30 minutes Exam Vital signs: Vital Signs 03/31/18 20:00 04/01/18 07:30 Temperature 98.2 F 99.7 F H Pulse Rate 86 104 H Respiratory Rate 18 19 Blood Pressure 121/66 126/78 Narrative: see post exam Results Procedures completed during hospitalization: Labs on day of discharge: Labs from last 24 hours 04/01/18 03/30/18 04:58 04:40 Sodium 138 Potassium 4.1 Chloride 105 Carbon Dioxide 21.3 Anion Gap 12 BUN 9 Creatinine 0.63 Estimated GFR Greater than 89 Random Glucose 79 Calcium 8.3 L Total Bilirubin 0.1 L AST 17 ALT 22 Alkaline Phosphatase 270 H Total Protein 6.5 Albumin 2.3 L Urine Color Yellow Urine Clarity Hazy H Urine pH 6.0 Ur Specific [place] 1.013 Urine Protein Negative Urine Glucose (UA) Negative Urine Ketones Negative Urine Occult Blood Small H Urine Nitrate Positive H Urine Bilirubin Negative Urine Urobilinogen Less than 2 Ur Leukocyte Esterase Large H Urine RBC 17 H Urine WBC 24 H Urine WBC Clumps Rare H Ur Squamous Epith Cells <1 Ur Transition Epith Cell 1 Amorphous Sediment Rare H Urine Bacteria Occasional H Urine Mucus Few H Micro UA Comment Culture indicated Urine Culture Comments Culture indicated Preliminary micro results at discharge 03/30/18 02:51 Group B Streptococcus Screen (JAD) - Preliminary Genital - Genital Region Results Pending - Impressions ITS Impressions Abdomen/Pelvis CT 03/31/18 00:00 CONCLUSION: 1. The uterus is markedly enlarged and extends into the lower abdomen. 2. Apparent right hydronephrosis and dilatation of the right ureter with no renal calculi. Discharge Plan - Discharge Disposition Patient Disposition: 01 Discharge Home - Discharge Condition Condition: Good - Discharge Order Discharge Orders: Discharge Order (Routine); Ordered 04/01/18 Ordered By: Kaylan Carson [employer] Clear for Discharge (Routine); Ordered 04/01/18 Ordered By: Kaylan Carson - Discharge Details Anticipated Discharge Date: 04/01/18 - Physicians Team Primary Care Provider: UNKNOWN, Attending Provider: Jordan Ulrich
== END 2018-04-01 11:30 | disposition home or self-care (01) ==
LOC: HOBED 02:02 → H1EA 03:09 → H2E 03:12 → H1EA 12:11
PROVIDERS: ADMIT Obstetrics & Gynecology; ATTEND Obstetrics & Gynecology